=== PATIENT | male | born 2000 | race Caucasian/White ===

== ENCOUNTER 2023-12-02 16:05 | Emergency (ER) | payer OTHER, SELFPAY ==
[2023-12-02 16:09] VITALS: BP 160/109
[2023-12-02 17:18] VITALS: BP 112/58
[2023-12-02 17:42] LABS: COVID-19 Antigen Negative (Negative)
--- NOTE | 2023-12-02 17:48 | ED.GENMED ---
History of Present Illness
General
Chief Complaint: Cold/Flu/URI Symptoms
Source: patient
Exam Limitations: none
Time Seen by Provider: 12/02/23 17:04
Nursing documentation reviewed up to this point in time: agreed with
History of Present Illness
History of Present Illness:
pt is a 23 y/o M with h/o obesity
anxiety
here with uri sxs x 3-4 days, fatigue, low grade temp, nasal congestion, slight dry cough
he is vaccinated for covid but hasn't had boosters
is concerned about covid becuase he lives with dad who also is worried. did not do a home test
last took tylenol yesterday
temp was 100.4 yesterday
no cp, sob, diarrhea, vomtiing, sore throat, headache, neck stiffness
he also had a swelling to the right index finger tip around the nail bed he just noticed
doesn't bite nails
no drainage
Past History
Past History
ED Past Medical History: Other (OCD/anxiety)
ED Past Surgical History: Other ([place] teeth)
Social History
Tobacco: Non-smoker
Alcohol: None
Drug: None
Personal: Single
Living: with family
Employment: Employed
Family History
Family History: Hypertension
Review of Systems
Review of Systems
Allergies reviewed?: Yes
All Other Systems: Not applicable
Phy Exam
Physical Exam
Physical Exam:
GENERAL: Alert , in no apparent distress
EYE: pupils equal and reactive
NECK: Supple
ENT: b/l TM s clear, pharynx nonerythematous but no tonsillar hypertrophy or exudates
CARDIAC: Regular rate and rhythm, no edema
LUNGS: Clear breath sounds bilaterally, no acute respiratory distress, no wheezes/rales/rhonchi, occ cough
ABDOMEN: Soft, without focal tenderness, no r/g, no cvat, normal bowel sounds
NEUROLOGICAL: Alert and oriented, no focal neuro deficits
SKIN: Warm and dry, skin intact.
MUSCULOSKELETAL: No edema, well perfused.
PSYCH: Normal and appropriate interaction.
Course
Orders/Labs/Results
Orders:
Orders
12/02/23 17:15
CR Chest - 2 Views Urgent
Comment:
Reason For Exam: cough, fever
12/02/23 17:20
COVID-19 Antigen Urgent
Source: Nasal Swab
Vital Signs
Initial and Last Documented VS:
Initial Vital Signs
Temp Pulse Resp BP Pulse Ox
99.4 F 106 20 160/109 96
12/02/23 16:09 12/02/23 16:09 12/02/23 16:09 12/02/23 16:09 12/02/23 16:09
Last Documented Vital Signs
Temp Pulse Resp BP Pulse Ox
98.7 F 97 18 130/93 97
12/02/23 19:07 12/02/23 19:07 12/02/23 19:07 12/02/23 19:07 12/02/23 19:07
Procedures
Incision/Drainage/Joint Aspiration
Right Second Finger(s):
Anethesia: 1% Lidocaine
Preparation: cleaned with Betadine
Type of procedure: incise
Nature of site: other (paronychia)
Description of abscess: less than 3cm
Loculations broken up: No
How much fluid was obtained?: scant amount
Fluid description: bloody
Additional information:
11 blade to lift the skin off the nail plate
MDM/Problems Addressed
Differential Diagnosis Includes:
uri, covid, paronychia
MDM/Problems Addressed:
23 y/o M with obesity
here with uri sxs x 3-4 days, congestion in nose, dry cough ,low grade temp
he ate at a buffet the day before this happened and he thought maybe he got something there
no GI symptoms
fever last yesterday
no mesd taken today
also has a selling around his right index finger
doesn't bite nailes
on exam well appearing
nasal mucosa thickened and inflamed
no sinus tendenress, ears normal, pharynx normal, lungs clear
cvid neg
cxr indep reviewed and neg
I*D paronychia with only bloody drainage
warm soaks recommended
d/c home
*Critical Care Note
Total Time (30-74mins, 75-104mins- exclusive of procedures): Not Applicable
ED Attending Note
-
Portions of this chart may have been created with voice recognition software.� Occasional wrong word or��sound alike� substitutions may have occurred due to the inherent limitations of voice recognition software.
Discharge Plan
Departure
Patient Disposition: Home (Routine Discharge)
Date of Disposition: 12/02/23
Time of Disposition: 18:54
Patient with high blood pressure during this ER visit?: No
Condition: Fair
Discharge Problem:
Paronychia, URI (upper respiratory infection)
Instructions: Paronychia ED, Upper respiratory infection in adults - Discharge instructions
Prescriptions:
No Action
amoxicillin 500 MG capsule
1,000 mg PO Q8 Qty: 30 0RF
Activity Restrictions/Additional Instructions:
YOUR COVID TEST WAS NEGATIVE AND YOUR CHEST XRAY WAS CLEAR
YOU LIKELY HAVE A VIRAL INFECTION CAUSING SINUSITIS
YOU CAN TRY SUDFAED (BEHIND THE COUNTER AT THE PHARMACY, NO PRESCRIPTION) NEEDED FOR YOUR CONGESTION
USE NASAL SALINE OR FLONASE
TYLENOL/MOTRIN FOR FEVERS/ACHES
ROBITUSSIN FOR COUGH NEEDED
YOUR FINGERTIP INFECTION WAS OPENED TO ALLOW IT TO HEAL
SOAK IN WARM WATER FOR 5-10 MINUTES A FEW TIMES A DAY NEEDED
RTURN FOR ANY CONCERNS, WORSENING FINGERTIP SWELLING, HIGH FEVER LASTING LONGER THAN 7 DAYS, SHORTNESS OF BREATH, FACIAL SWELLING ETC
Interventions
Interventions:
*Risk Screen - Suicide Last Done: 12/02/23 17:12
*General Assessment Last Done: 12/02/23 17:12
*Neglect/Abuse Screening Last Done: 12/02/23 17:12
ED- Fall Risk Assessment Last Done: 12/02/23 17:12
*ED COVID-19 Vaccine History Last Done: 12/02/23 17:12
*Nursing Disposition Last Done: 12/02/23 19:07
ED- Pulmonary Assessment Last Done: 12/02/23 17:12
Discharge Date and Time
Discharge Date/Time: 12/02/23 19:05
Print Language: CZECH
[2023-12-02 19:04] VITALS: BP 130/93
--- NOTE | 2023-12-02 19:06 | EDRN ---
Reviewed discharge instructions with patient. Verbalized understanding. Ambulated with steady gait to the lobby.
[2023-12-02 19:07] VITALS: BP 130/93
== END 2023-12-02 19:05 | disposition home or self-care (01) ==
LOC: EMR 16:05
PROVIDERS: Physician Assistant; EMERGENCY PHYSICIAN Emergency Medicine; FAMILY PHYSICIAN Family Medicine
DX: J06.9 Acute upper respiratory infection, unspecified (principal); L03.011 Cellulitis of right finger; Z11.52 Encounter for screening for COVID-19
CPT/HCPCS: 99283; 10060; 71046; 87811

== ENCOUNTER 2024-05-21 19:08 | Emergency (ER) | payer OTHER, SELFPAY ==
[2024-05-21 19:11] VITALS: BP 162/116
[2024-05-21 19:38] LABS: COVID-19 Antigen Negative (Negative)
--- NOTE | 2024-05-21 19:43 | ED.GENMED ---
History of Present Illness
General
Chief Complaint: Cold/Flu/URI Symptoms
Time Seen by Provider: 05/21/24 19:31
History of Present Illness
History of Present Illness:
23-year-old male presents to the emergency department for evaluation of of cough, fever, and bodyaches for the past 1 to 2 days. No chest pain or shortness of breath. He is concerned due to symptoms that were similar to past episode of pneumonia.
No antipyretics taken today. No history of lung disease. Denies tobacco use
Past History
Past History
ED Past Medical History: Other (OCD/anxiety)
ED Past Surgical History: Other ([place] teeth)
Social History
Tobacco: Non-smoker
Alcohol: None
Drug: None
Personal: Single
Living: with family
Employment: Employed
Family History
Family History: Hypertension
Review of Systems
Review of Systems
Allergies reviewed?: Yes
All Other Systems: ROS reviewed and negative except as documented in HPI and ROS
Phy Exam
Physical Exam
Physical Exam:
GEN: Diaphoretic but overall well-appearing, morbidly obese
HEENT: Oral mucosa moist, no scleral icterus
Cardiac: Mildly tachycardic, regular
Lung: No respiratory distress, no tachypnea, lungs clear to auscultation bilaterally
MSK: No gross deformity or injuries
Skin: Good color, no pallor or jaundice, no rashes
Neuro: AO x3, moves all extremities freely
Psych: Calm, cooperative
Course
Orders/Labs/Results
Orders:
Orders
05/21/24 19:13
Electrocardiogram (*1) Urgent
Reason for Study: Shortness of Breath
EKG- Treatment ONCE
CR Chest - 2 Views Urgent
Comment:
Reason For Exam: sob
05/21/24 19:18
COVID-19 Antigen Urgent
Source: Nasal Swab
Influenza A+B Rapid Molecular Urgent
MICHAEL Source: Nasal Swab
Specimen Description:
05/21/24 19:44
Acetaminophen [Tylenol] 1,000 mg PO NOW STA
Vital Signs
Initial and Last Documented VS:
Initial Vital Signs
Temp Pulse Resp BP Pulse Ox
98.9 F 118 18 162/116 98
05/21/24 19:11 05/21/24 19:11 05/21/24 19:11 05/21/24 19:11 05/21/24 19:11
Last Documented Vital Signs
Temp Pulse Resp BP Pulse Ox
98.9 F 118 18 162/116 98
05/21/24 19:11 05/21/24 19:11 05/21/24 19:11 05/21/24 19:11 05/21/24 19:11
MDM/Problems Addressed
MDM/Problems Addressed:
For patient is positive for flu A, clinically stable, lungs clear by auscultation and by imaging. Given his morbid obesity will start antivirals
*Critical Care Note
Total Time (30-74mins, 75-104mins- exclusive of procedures): Not Applicable
ED Attending Note
-
Portions of this chart may have been created with voice recognition software.� Occasional wrong word or��sound alike� substitutions may have occurred due to the inherent limitations of voice recognition software.
Discharge Plan
Departure
Patient Disposition: Home (Routine Discharge)
Date of Disposition: 05/21/24
Time of Disposition: 19:44
Patient with high blood pressure during this ER visit?: Yes
Discharge Problem:
Influenza A
Instructions: Flu in adults - ED discharge instructions
Prescriptions:
New
oseltamivir [Tamiflu] 75 mg capsule
75 mg PO BID 5 Days Qty: 10 0RF
benzonatate 200 mg capsule
200 mg PO TID PRN (Reason: Cough) Qty: 20 0RF
No Action
amoxicillin 500 MG capsule
1,000 mg PO Q8 Qty: 30 0RF
Interventions
Interventions:
*Risk Screen - Suicide Last Done: 05/21/24 19:11
*General Assessment Last Done: 05/21/24 19:11
*Neglect/Abuse Screening Last Done: 05/21/24 19:11
ED- Fall Risk Assessment Last Done: 05/21/24 21:05
*ED COVID-19 Vaccine History Last Done: 05/21/24 19:11
*Nursing Disposition Last Done: 05/21/24 21:05
ED- Pulmonary Assessment Last Done: 05/21/24 19:59
Discharge Date and Time
Discharge Date/Time: 05/21/24 21:06
Print Language: THAI
[2024-05-21] MEDS: TYLENOL 1000 MG PO (19:49)
== END 2024-05-21 21:06 | disposition home or self-care (01) ==
LOC: EMR 19:08
PROVIDERS: Emergency Medicine; EMERGENCY PHYSICIAN Student in an Organized Health Care Education/Training Program; FAMILY PHYSICIAN Family Medicine
DX: J10.1 Influenza due to other identified influenza virus with other respiratory manifestations (principal); E66.01 Morbid (severe) obesity due to excess calories
CPT/HCPCS: 99285; 71046; 87502; 87811; 93005